=== PATIENT | male | born 1955 | race African-American/Black ===

== ENCOUNTER 2019-10-25 23:46 | Emergency (ER) | payer MEDICARE, MEDICAID ==
[~2019-10-25] VITALS: Ht 188 cm; Wt 82.0 kg
[2019-10-25 23:50] VITALS: BP 116/84
[2019-10-26] MEDS ORDERED: ACETAMINOPHEN 325MG TABLET PO ONE (03:00)
== END 2019-10-26 03:35 | disposition home or self-care (01) ==
LOC: ER 23:46
DX: M54.5 Low back pain (principal)
CPT/HCPCS: 99283